=== PATIENT | female | born 1985 | race Caucasian/White ===

== ENCOUNTER 2019-08-08 18:14 | Emergency (ER) | payer SELFPAY ==
[~2019-08-08] VITALS: Ht 166.4 cm; Wt 115.7 kg
[2019-08-08 18:23] VITALS: BP 107/67
--- NOTE | 2019-08-08 18:36 | NUR ---
PATIENT AMBULATED TO CHAIR C.
[2019-08-08] MEDS ORDERED: IBUPROFEN 600 MG TAB PO ONE (18:55)
[2019-08-08 19:09] VITALS: BP 105/68
--- NOTE | 2019-08-08 19:09 | NUR ---
JARED OKAY TO DISCHARGE PATIENT. Patient discharged with v/s stable. Written and verbal after care instructions given and explained. Patient alert, oriented and verbalized understanding of instructions. Ambulatory with steady gait. All questions addressed prior to discharge. ID band removed. Patient advised to follow up with PMD. Rx of IBUPROFEN; NIRTOFURANTOIN; PHENAZOPYRIDINE given. Patient educated on indication of medication including possible reaction and side effects. Opportunity to ask questions provided and answered. SEEN AND ASSESSED BY ABBY TOLEDO.
== END 2019-08-08 19:09 | disposition home or self-care (01) ==
LOC: MED 18:14
DX: N39.0 Urinary tract infection, site not specified (principal)
CPT/HCPCS: 81002; 81025; 99283